=== PATIENT | female | born 2000 | race Caucasian/White ===

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

== ENCOUNTER 2020-02-20 20:41 | Emergency (ER) | payer OTHER ==
[~2020-02-20] VITALS: Ht 177.8 cm; Wt 104.3 kg
[~2020-02-20 20:41] MED LIST: CEPH500 PO; Pyridium100 MG PO
[2020-02-20] MEDS ORDERED: Robaxin-750750 MG PO (21:09)
== END 2020-02-20 21:21 | disposition home or self-care (01) ==
LOC: ER 20:41
DX: M76.31 Iliotibial band syndrome, right leg (principal); M54.5 Low back pain
CPT/HCPCS: 99283; J1100

== ENCOUNTER → 2020-09-04 | Outpatient (CLI) | payer OTHER ==
[~2020-09-04] MED LIST changes: +Robaxin-750750 MG PO
== END | disposition home or self-care (01) ==
LOC: LAB SHORT 17:19 → LAB EV 17:19
DX: N39.0 Urinary tract infection, site not specified (principal)
CPT/HCPCS: 87086

== ENCOUNTER → 2020-11-25 | Outpatient (CLI) | payer OTHER | END | disposition home or self-care (01) | LOC: LAB SHORT 12:31 | DX: R30.9 Painful micturition, unspecified (principal) | CPT/HCPCS: 87086 ==

== ENCOUNTER → 2021-12-16 | Outpatient (CLI) | payer OTHER | END | disposition home or self-care (01) | LOC: LAB SHORT 19:09 | DX: N39.0 Urinary tract infection, site not specified (principal) | CPT/HCPCS: 87086 ==